=== PATIENT | female | born 1985 | race Hispanic/Latino ===

== ENCOUNTER 2019-10-13 17:56 | Emergency (ER) | payer SELFPAY ==
[2019-10-13 18:05] VITALS: BP 145/91
--- NOTE | 2019-10-13 18:28 | Emergency Department Report ---
Chief Complaint: Dental/Oral Stated Complaint: TOOTH PAIN Time Seen by Provider: 10/13/19 18:24 - HPI History of Present Illness: 33-year-old female presents to the emergency room for 3-week history of tooth pain is located in her upper jaw. Patient reports that she has taken [id number] BC Tylenol Advil without much relief. 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 Patient reports she does not have a dentist. Patient is requesting a work excuse to be off tomorrow. - Exam Vital Signs: Vital Signs 10/13/19 18:04 Temperature 99.6 F Pulse Rate 98 H Respiratory 20 Rate Blood Pressure 145/91 O2 Sat by Pulse 97 Oximetry Physical Exam: Patient is alert and oriented x3 no acute distress Face no swelling appreciated Right tooth #2 shows no gingiva enlargement not able to appreciate a large cavity or fractured tooth. No abscess appreciated Patient is ambulatory without difficulties MSE screening note: Focused history and physical exam performed. Due to findings the following was ordered: 33-year-old female presents to the emergency room for 3-week history of tooth pain is located in her upper jaw. Patient reports that she has taken [id number] BC Tylenol Advil without much relief. 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 Patient reports she does not have a dentist. Patient is requesting a work excuse to be off tomorrow. Recommend to follow-up with a dentist handout has been given to patient. Patient can continue taking ibuprofen and Tylenol for pain management. ED Disposition for MSE Clinical Impression: Pain in tooth Disposition: Z-07 MED SCREENING EXAM-LEFT Is pt being admited?: No Does the pt Need Aspirin: No Condition: Stable Additional Instructions: Take Tylenol ibuprofen or Aleve for pain management. Follow-up with a dentist. Referrals: [facility] [Outside] - 3-5 Days [facility] [Outside] - 3-5 Days [facility] [Outside] - 3-5 Days Forms: Work/School Release Form(ED)
== END 2019-10-13 18:51 | disposition left against medical advice (07) ==
LOC: ED 17:56
DX: K08.89 Other specified disorders of teeth and supporting structures (principal)
CPT/HCPCS: 99281

== ENCOUNTER 2020-02-19 13:08 | Emergency (ER) | payer SELFPAY ==
[2020-02-19] MEDS ORDERED: IBUPROFEN 800 MG TAB PO ONE (13:48)
[2020-02-19] MEDS ORDERED: LIDOCAINE (1%) 10 MG/1 ML VIAL 20 ML MDV INFILTRATI ONE (13:48)
[2020-02-19] MEDS ORDERED: CLINDAMYCIN 300 MG CAP PO ONE (13:48)
[2020-02-19] MEDS ORDERED: oxyCODONE /ACETAMINOPHEN 5-325MG TAB PO ONE (13:48)
[2020-02-19 14:49] VITALS: BP 109/60
--- NOTE | 2020-02-19 14:51 | Emergency Department Report ---
ED General Adult HPI - General Chief complaint: Skin/Abscess/Foreign Body Stated complaint: ABCESS BY PRIVATE AREA Time Seen by Provider: 02/19/20 13:41 Source: patient Mode of arrival: Ambulatory Limitations: No Limitations - History of Present Illness Initial comments: Patient is a 34-year-old female who is presenting with abscesses in the groin region. States that approximately 3 weeks ago she had a small abscess in the right inguinal region. This has nearly resolved. She now has 2 areas that have developed in the area just medial to the thigh crease on the left. States there is no drainage from 1. She has pain is 6 out of 10 in severity is worse when she is walking or palpating. Patient denies any fevers chills nausea vomiting at this time. Severity scale (0 -10): 10 - Related Data Previous Rx's Medication Instructions Recorded Last Taken Type lisinopriL [Zestril TAB] 10 mg PO QDAY #30 tablet 03/27/15 Unknown Rx metFORMIN [Glucophage] 500 mg PO BID #60 tablet 03/27/15 Unknown Rx Chlorhexidine Gluconate [Hibiclens] 5 ml TP BID #1 bottle 02/19/20 Unknown Rx Clindamycin [Clindamycin CAP] 300 mg PO Q8H #21 cap 02/19/20 Unknown Rx Ibuprofen [Motrin 600 MG tab] 600 mg PO Q8H PRN #20 tablet 02/19/20 Unknown Rx Allergies Allergy/AdvReac Type Severity Reaction Status Date / Time No Known Allergies Allergy Verified 03/26/15 14:04 ED Review of Systems ROS: Stated complaint: ABCESS BY PRIVATE AREA Other details as noted in HPI Comment: All other systems reviewed and negative ED Past Medical Hx - Past Medical History Previous Medical History?: Yes Hx Hypertension: Yes Hx Diabetes: Yes Additional medical history: food borne hepatitis - Surgical History Past Surgical History?: No - Social History Smoking Status: Current Every Day Smoker Substance Use Type: None - Medications Home Medications: Home Medications Medication Instructions Recorded Confirmed Last Taken Type lisinopriL [Zestril TAB] 10 mg PO QDAY #30 tablet 03/27/15 02/19/20 Unknown Rx metFORMIN [Glucophage] 500 mg PO BID #60 tablet 03/27/15 02/19/20 Unknown Rx Chlorhexidine Gluconate [Hibiclens] 5 ml TP BID #1 bottle 02/19/20 Unknown Rx Clindamycin [Clindamycin CAP] 300 mg PO Q8H #21 cap 02/19/20 Unknown Rx Ibuprofen [Motrin 600 MG tab] 600 mg PO Q8H PRN #20 tablet 02/19/20 Unknown Rx ED Physical Exam - General Limitations: No Limitations General appearance: alert, in no apparent distress - Head Head exam: Present: atraumatic, normocephalic - Eye Eye exam: Present: normal appearance, PERRL, EOMI - ENT ENT exam: Present: mucous membranes moist - Neck Neck exam: Present: normal inspection - Respiratory Respiratory exam: Present: normal lung sounds bilaterally. Absent: respiratory distress, wheezes, rales, rhonchi, stridor - Cardiovascular Cardiovascular Exam: Present: regular rate, normal rhythm. Absent: systolic murmur, diastolic murmur, rubs, gallop - GI/Abdominal GI/Abdominal exam: Present: soft, normal bowel sounds - Extremities Exam Extremities exam: Present: normal inspection - Back Exam Back exam: Present: normal inspection - Neurological Exam Neurological exam: Present: alert, oriented X3 - Psychiatric Psychiatric exam: Present: normal affect, normal mood - Skin Skin exam: Present: warm, dry, intact, normal color. Absent: rash - Expanded Skin Exam Expanded 1 - several areas of folliculitis 2 - 2 small abscesses in the left inguinal crease. 1 of which is draining. Both are relatively small. ED Course Vital Signs 02/19/20 02/19/20 02/19/20 13:13 13:15 13:33 Temperature 98.7 F 98.7 F Pulse Rate 98 H 102 H Respiratory 18 18 Rate Blood Pressure 152/93 152/93 Blood Pressure [Left] O2 Sat by Pulse 95 95 96 Oximetry 02/19/20 02/19/20 02/19/20 13:34 13:39 13:45 Temperature Pulse Rate 90 Respiratory 20 18 Rate Blood Pressure 130/91 Blood Pressure 134/88 [Left] O2 Sat by Pulse 98 98 Oximetry 02/19/20 14:01 Temperature Pulse Rate Respiratory Rate Blood Pressure 144/61 Blood Pressure [Left] O2 Sat by Pulse 97 Oximetry - I & D Pubic Area Type of Procedure: Simple Site: Left groin Blade Size: 11 I & D Procedure: betadine prep, sterile drapes applied, sterile dressing applied, gauze wick placed (in the larger abscess) Progress: Loculations were broken up in both. Both were irrigated with copious amounts of normal saline. Critical care attestation.: If time is entered above; I have spent that time in minutes in the direct care of this critically ill patient, excluding procedure time. ED Disposition Clinical Impression: Abscess, Folliculitis barbae, Hyperglycemia Disposition: DC-01 TO HOME OR SELFCARE Is pt being admited?: No Does the pt Need Aspirin: No Condition: Stable Instructions: Abscess (ED), Folliculitis (ED) Time of Disposition: 14:54
== END 2020-02-19 15:07 | disposition home or self-care (01) ==
LOC: ED 13:08
DX: L02.214 Cutaneous abscess of groin (principal); L73.8 Other specified follicular disorders; E11.65 Type 2 diabetes mellitus with hyperglycemia; I10 Essential (primary) hypertension; F17.200 Nicotine dependence, unspecified, uncomplicated; Z79.899 Other long term (current) drug therapy
CPT/HCPCS: 82962; 99282

== ENCOUNTER 2021-02-18 23:15 | Emergency (ER) | payer SELFPAY ==
[2021-02-18 23:22] VITALS: BP 164/91
--- NOTE | 2021-02-19 00:25 | Emergency Department Report ---
ED Fall HPI - General Chief Complaint: Fall Stated Complaint: FALL/RIB/KNEE PAIN Time Seen by Provider: 02/18/21 23:48 Source: patient Mode of arrival: Ambulatory - History of Present Illness Initial Comments: 35-year-old female was at home 2 days ago attempting to change a light bulb slipped and water fell down onto her left side hitting it against an object Juan of the ribs at the striking the ribs caused her body to drill and she twisted her right leg and knee resulting in pain and swelling. She attempted to self treat for the last 2 days but the left rib pain became more dull and throbbing and worse with palpation and deep breaths and range of motion. But no hemoptysis no hematemesis no hematochezia. No wheezes no fevers chills or sweats. Regards to the knee she reports that she noticed some mild swelling and pain with with flexion and extension weightbearing. No pre-existing issues with her knee to her knowledge MD Complaint: fall - Related Data Previous Rx's Medication Instructions Recorded Last Taken Type lisinopriL [Zestril TAB] 10 mg PO QDAY #30 tablet 03/27/15 Unknown Rx metFORMIN [Glucophage] 500 mg PO BID #60 tablet 03/27/15 Unknown Rx Chlorhexidine Gluconate [Hibiclens] 5 ml TP BID #1 bottle 02/19/20 Unknown Rx Clindamycin [Clindamycin CAP] 300 mg PO Q8H #21 cap 02/19/20 Unknown Rx Ibuprofen [Motrin 600 MG tab] 600 mg PO Q8H PRN #20 tablet 02/19/20 Unknown Rx Ketorolac [Toradol] 10 mg PO Q6H PRN #14 tablet 02/19/21 Unknown Rx methOCARBAMOL [Robaxin TAB] 750 mg PO Q8H #20 tablet 02/19/21 Unknown Rx Allergies Allergy/AdvReac Type Severity Reaction Status Date / Time No Known Allergies Allergy Verified 03/26/15 14:04 ED Review of Systems ROS: Stated complaint: FALL/RIB/KNEE PAIN Other details as noted in HPI Comment: All other systems reviewed and negative ED Past Medical Hx - Past Medical History Previous Medical History?: Yes Hx Hypertension: Yes Hx Diabetes: Yes Additional medical history: food borne hepatitis - Surgical History Past Surgical History?: No - Social History Smoking Status: Current Every Day Smoker Substance Use Type: None - Medications Home Medications: Home Medications Medication Instructions Recorded Confirmed Last Taken Type lisinopriL [Zestril TAB] 10 mg PO QDAY #30 tablet 03/27/15 02/19/20 Unknown Rx metFORMIN [Glucophage] 500 mg PO BID #60 tablet 03/27/15 02/19/20 Unknown Rx Chlorhexidine Gluconate [Hibiclens] 5 ml TP BID #1 bottle 02/19/20 Unknown Rx Clindamycin [Clindamycin CAP] 300 mg PO Q8H #21 cap 02/19/20 Unknown Rx Ibuprofen [Motrin 600 MG tab] 600 mg PO Q8H PRN #20 tablet 02/19/20 Unknown Rx Ketorolac [Toradol] 10 mg PO Q6H PRN #14 tablet 02/19/21 Unknown Rx methOCARBAMOL [Robaxin TAB] 750 mg PO Q8H #20 tablet 02/19/21 Unknown Rx ED Physical Exam - General Limitations: No Limitations General appearance: alert, in no apparent distress - Head Head exam: Present: atraumatic, normocephalic - Eye Eye exam: Present: normal appearance, PERRL, EOMI Pupils: Present: normal accommodation - ENT ENT exam: Present: mucous membranes moist - Neck Neck exam: Present: normal inspection, full ROM - Respiratory Respiratory exam: Present: normal lung sounds bilaterally, chest wall tenderness (Left side with ecchymosis noted at the area of the left flank/rib region.). Absent: respiratory distress, wheezes, rhonchi, decreased breath sounds, prolonged expiratory - Cardiovascular Cardiovascular Exam: Present: regular rate, normal rhythm. Absent: systolic murmur, diastolic murmur, rubs, gallop - GI/Abdominal GI/Abdominal exam: Present: soft, normal bowel sounds. Absent: guarding, rebound, hypoactive bowel sounds, organomegaly - Extremities Exam Extremities exam: Present: normal inspection, normal capillary refill - Back Exam Back exam: Present: normal inspection. Absent: CVA tenderness (R), CVA tenderness (L) - Neurological Exam Neurological exam: Present: alert, oriented X3, CN II-XII intact - Psychiatric Psychiatric exam: Present: normal affect, normal mood. Absent: flat affect, manic, suicidal ideation - Skin Skin exam: Present: warm, dry, intact, normal color. Absent: rash, diaphoretic, erythema, ecchymosis ED Course Vital Signs 10/01/21 10/01/21 23:19 23:22 Temperature 99.3 F Pulse Rate 93 H Respiratory 12 Rate Blood Pressure 164/91 O2 Sat by Pulse 98 Oximetry ED Medical Decision Making - Radiology Data Radiology results: report reviewed X-ray chest ribs and knees no acute fractures or dislocations knee x-ray does show some tricompartmental mild arthritis and small effusion Critical care attestation.: If time is entered above; I have spent that time in minutes in the direct care of this critically ill patient, excluding procedure time. ED Disposition Clinical Impression: Contusion of rib on left side, Tricompartment osteoarthritis of right knee, Knee strain Disposition: HOME / SELF CARE / HOMELESS Is pt being admited?: No Does the pt Need Aspirin: No Condition: Stable Instructions: Preventing Osteoarthritis, Adult, How to Use Cold Therapy, [id number]-ix-[id number], Elastic Bandage and RICE Therapy, Rib Contusion, How to Use Cold Therapy, How to Use a Knee Brace Additional Instructions: He was seen evaluated emergency department for slip and fall with resulting trauma to the chest and knee. During your emergency department visit no urgent or emergent medical conditions were discovered. Your x-ray showed no acute processes. Please utilize ice therapy anti-inflammatories and and muscle relaxers to treat your contusions and your knee strain. Utilize Vamshi wrap for comfort to you your your name and follow-up with your primary care doctor orthopedic to be reevaluated within 1 week Prescriptions: methOCARBAMOL [Robaxin TAB] 750 mg PO Q8H #20 tablet Ketorolac [Toradol] 10 mg PO Q6H PRN #14 tablet PRN Reason: Pain Referrals: PRIMARY MD KELI [Primary Care Provider] - 3-5 Days DAINA TURPIN MD [Staff Physician] - 7-10 days
--- NOTE | 2021-02-19 01:23 | XRay Report ---
Right knee 3 views INDICATION: Right knee pain IMPRESSION: Small knee effusion. Mild tricompartmental degenerative changes. No fracture or subluxati on. Signer Name: Jose De Jesus El MD Signed: 02/19/2021 1:19 AM Workstation Name: [id number]
--- NOTE | 2021-02-19 01:25 | XRay Report ---
Rib series with chest left 4 views INDICATION: Left chest pain after injury IMPRESSION: The lungs are clear. No displaced rib fracture is identified. Signer Name: Jose De Jesus El MD Signed: 02/19/2021 1:20 AM Workstation Name: [id number]
[2021-02-19] MEDS ORDERED: oxyCODONE /ACETAMINOPHEN 5-325MG TAB PO ONE (03:27)
== END 2021-02-19 04:00 | disposition home or self-care (01) ==
LOC: ED 23:15
DX: S86.811A Strain of other muscle(s) and tendon(s) at lower leg level, right leg, initial encounter (principal); S20.212A Contusion of left front wall of thorax, initial encounter; M17.11 Unilateral primary osteoarthritis, right knee; Z79.899 Other long term (current) drug therapy; W18.39XA Other fall on same level, initial encounter; Y93.89 Activity, other specified; Y92.89 Other specified places as the place of occurrence of the external cause; Y99.8 Other external cause status
CPT/HCPCS: 99283

== ENCOUNTER 2021-05-20 16:15 | Emergency (ER) | payer SELFPAY ==
--- NOTE | 2021-05-20 18:06 | Emergency Department Report ---
ED General Adult HPI - General Chief complaint: Skin/Abscess/Foreign Body Stated complaint: SWOLLEN FACE/EYE Time Seen by Provider: 05/20/21 18:04 Source: patient Mode of arrival: Ambulatory Limitations: No Limitations - History of Present Illness Initial comments: Patient presents with a 3 to 5-day history of pain and swelling in the right facial area. But a month ago she had some dental tenderness on the right side. She did not have swelling at that point. This just started. She has no trauma. There is no fevers or chills with is no cough congestion. There is swelling involving the right cheek area and the swelling extends up to the eye. She states that the swelling might of gotten a little bit better as the day progressed. She states that she really does not have any dental tenderness although she knows that she has extensive caries. There is no cough or congestion. She has had no blurry vision or double vision. Has not been bitten or stung by anything. Patient does admit that she is noncompliant with her blood pressure medication and diabetes medication. She has not been on medications for months, at least. - Related Data Previous Rx's Medication Instructions Recorded Last Taken Type Clindamycin [Clindamycin CAP] 300 mg PO Q8H #21 cap 05/20/21 Unknown Rx Ibuprofen [Motrin 600 MG tab] 600 mg PO Q8H PRN #20 tablet 05/20/21 Unknown Rx lisinopriL [Zestril TAB] 10 mg PO QDAY #30 tablet 05/20/21 Unknown Rx metFORMIN [Glucophage] 500 mg PO BID #60 tablet 05/20/21 Unknown Rx Allergies Allergy/AdvReac Type Severity Reaction Status Date / Time No Known Allergies Allergy Verified 03/26/15 14:04 ED Review of Systems ROS: Stated complaint: SWOLLEN FACE/EYE Other details as noted in HPI Comment: All other systems reviewed and negative Constitutional: denies: fever Eyes: denies: vision change ENT: denies: throat pain Respiratory: denies: cough Cardiovascular: denies: chest pain Gastrointestinal: denies: abdominal pain Genitourinary: denies: dysuria Musculoskeletal: denies: back pain Skin: denies: rash Neurological: denies: headache Hematological/Lymphatic: denies: easy bruising ED Past Medical Hx - Past Medical History Hx Hypertension: Yes Hx Diabetes: Yes Additional medical history: food borne hepatitis - Family History Family history: diabetes, hypertension - Social History Smoking Status: Current Every Day Smoker Substance Use Type: None - Medications Home Medications: Home Medications Medication Instructions Recorded Confirmed Last Taken Type Clindamycin [Clindamycin CAP] 300 mg PO Q8H #21 cap 05/20/21 Unknown Rx Ibuprofen [Motrin 600 MG tab] 600 mg PO Q8H PRN #20 tablet 05/20/21 Unknown Rx lisinopriL [Zestril TAB] 10 mg PO QDAY #30 tablet 05/20/21 Unknown Rx metFORMIN [Glucophage] 500 mg PO BID #60 tablet 05/20/21 Unknown Rx ED Physical Exam - General Limitations: No Limitations, Other (Pulse ox noted and normal) General appearance: alert, in no apparent distress - Head Head exam: Present: atraumatic, other (There is right maxillary edema with induration. There is flattening of the right nasolabial fold. This has some warmth associate with this. There is no fluctuance) - Eye Eye exam: Present: normal appearance, EOMI - ENT ENT exam: Present: other (Dental caries involving the right 1st molar and wisdom tooth. These are on the upper side. Lower dentition appears to be unremarkable.) - Neck Neck exam: Present: normal inspection. Absent: meningismus - Respiratory Respiratory exam: Present: normal lung sounds bilaterally. Absent: respiratory distress - Cardiovascular Cardiovascular Exam: Present: regular rate, normal rhythm - GI/Abdominal GI/Abdominal exam: Present: soft. Absent: tenderness - Extremities Exam Extremities exam: Present: normal capillary refill - Back Exam Back exam: Present: full ROM - Neurological Exam Neurological exam: Present: alert, oriented X3, normal gait - Psychiatric Psychiatric exam: Present: normal affect, normal mood - Skin Skin exam: Present: warm, dry ED Course Vital Signs 05/20/21 18:01 Temperature 98.9 F Pulse Rate 92 H Respiratory 17 Rate Blood Pressure 185/110 O2 Sat by Pulse 96 Oximetry - Reevaluation(s) Reevaluation #1: 05/20/21 18:17 Patient was treated and released. Old records noted. ED Medical Decision Making - Medical Decision Making Patient presented with an apical alveolar abscess consistent with a dental infection. There was no discrete abscess that would be drainable. She has diffuse dental caries and this can be treated. She was referred to a dentist. She does have diabetes and hypertension and is noncompliant with medication. These medications have been refilled. We did discuss tobacco cessation as she smokes a half a pack a day. She does not appear to be septic or toxic at this time. There is no airway compromise. There is no evidence of Claude angina. Critical Care Time: No Critical care attestation.: If time is entered above; I have spent that time in minutes in the direct care of this critically ill patient, excluding procedure time. ED Disposition Clinical Impression: Apical alveolar abscess, Cellulitis of buccal space of mouth, Tobacco abuse, Medication refill Disposition: HOME / SELF CARE / HOMELESS Is pt being admited?: No Condition: Stable Instructions: Dental Abscess, Preventing Exposure to Secondhand Smoke, Adult, Preventive Dental Care, Adult, Steps to Quit Smoking Additional Instructions: Have a soft diet. See a dentist. Take all of the antibiotics. Take your blood pressure and diabetes medication. Stop smoking. Prescriptions: Clindamycin [Clindamycin CAP] 300 mg PO Q8H #21 cap metFORMIN [Glucophage] 500 mg PO BID #60 tablet Ibuprofen [Motrin 600 MG tab] 600 mg PO Q8H PRN #20 tablet PRN Reason: Pain lisinopriL [Zestril TAB] 10 mg PO QDAY #30 tablet Referrals: ADVON MASON MD [Staff Physician] - 3-5 Days
[2021-05-20 19:12] VITALS: BP 161/99
== END 2021-05-20 18:50 | disposition home or self-care (01) ==
LOC: ED 16:15
DX: K04.6 Periapical abscess with sinus (principal); K12.2 Cellulitis and abscess of mouth; Z76.0 Encounter for issue of repeat prescription; I10 Essential (primary) hypertension; E11.9 Type 2 diabetes mellitus without complications; F17.200 Nicotine dependence, unspecified, uncomplicated
CPT/HCPCS: 99282

== ENCOUNTER 2022-01-26 12:46 | Emergency (ER) | payer SELFPAY ==
[2022-01-26 12:51] VITALS: BP 178/115
[2022-01-26] MEDS ORDERED: diphenhydrAMINE 25 MG CAP PO ONE (13:56)
[2022-01-26] MEDS ORDERED: BUTALB/ACETAMINOPHEN/CAFFEINE TAB PO ONE (13:56)
[2022-01-26] MEDS ORDERED: METOCLOPRAMIDE 10 MG TAB PO ONE (13:57)
--- NOTE | 2022-01-26 14:29 | Emergency Department Report ---
ED General Adult HPI - General Chief complaint: Headache Stated complaint: HEADACHE Time Seen by Provider: 01/26/22 13:46 Source: patient, EMS Mode of arrival: Ambulatory Limitations: No Limitations - History of Present Illness Initial comments: The patient presents to the emergency department the chief complaint of a headache that has been present since Sunday. Patient states she has pressure over her right eye states this is very consistent with sinus infection she has had in the past. She describes the pain as throbbing in nature and states is also located on the left side of her forehead as well. Patient states she has been seen for sinus infections twice in the emergency department within the last year or 2. Patient denies any chest pain, shortness breath, or abdominal pain. -: Sudden Location: head Radiation: non-radiation Severity scale (0 -10): 10 Consistency: constant Improves with: none Worsens with: none Associated Symptoms: denies other symptoms Treatments Prior to Arrival: none - Related Data Previous Rx's Medication Instructions Recorded Last Taken Type Clindamycin [Clindamycin CAP] 300 mg PO Q8H #21 cap 05/20/21 Unknown Rx Ibuprofen [Motrin 600 MG tab] 600 mg PO Q8H PRN #20 tablet 05/20/21 Unknown Rx lisinopriL [Zestril TAB] 10 mg PO QDAY #30 tablet 05/20/21 Unknown Rx metFORMIN [Glucophage] 500 mg PO BID #60 tablet 05/20/21 Unknown Rx Amoxicillin/K Clav Tab [Augmentin 1 tab PO Q12HR #14 tab 01/26/22 Unknown Rx 875 mg] traMADoL [Ultram] 50 mg PO Q6HR PRN #24 tablet 01/26/22 Unknown Rx Allergies Allergy/AdvReac Type Severity Reaction Status Date / Time No Known Allergies Allergy Verified 01/26/22 12:51 ED Review of Systems ROS: Stated complaint: HEADACHE Other details as noted in HPI Comment: All other systems reviewed and negative Constitutional: denies: chills, fever Eyes: denies: eye pain, eye discharge, vision change ENT: denies: ear pain, throat pain Respiratory: denies: cough, shortness of breath, wheezing Cardiovascular: denies: chest pain, palpitations Endocrine: no symptoms reported Gastrointestinal: denies: abdominal pain, nausea, diarrhea Genitourinary: denies: urgency, dysuria, discharge Musculoskeletal: denies: back pain, joint swelling, arthralgia Skin: denies: rash, lesions Neurological: headache. denies: weakness, paresthesias Psychiatric: denies: anxiety, depression Hematological/Lymphatic: denies: easy bleeding, easy bruising ED Past Medical Hx - Past Medical History Hx Hypertension: Yes Hx Diabetes: Yes Additional medical history: food borne hepatitis - Social History Smoking Status: Current Every Day Smoker Substance Use Type: None - Medications Home Medications: Home Medications Medication Instructions Recorded Confirmed Last Taken Type Clindamycin [Clindamycin CAP] 300 mg PO Q8H #21 cap 05/20/21 Unknown Rx Ibuprofen [Motrin 600 MG tab] 600 mg PO Q8H PRN #20 tablet 05/20/21 Unknown Rx lisinopriL [Zestril TAB] 10 mg PO QDAY #30 tablet 05/20/21 Unknown Rx metFORMIN [Glucophage] 500 mg PO BID #60 tablet 05/20/21 Unknown Rx Amoxicillin/K Clav Tab [Augmentin 1 tab PO Q12HR #14 tab 01/26/22 Unknown Rx 875 mg] traMADoL [Ultram] 50 mg PO Q6HR PRN #24 tablet 01/26/22 Unknown Rx ED Physical Exam - General Limitations: No Limitations General appearance: alert, in no apparent distress - Head Head exam: Present: atraumatic, normocephalic, other (Patient has tenderness palpation of the frontal and maxillary sinuses on exam) - Eye Eye exam: Present: normal appearance, PERRL, EOMI - ENT ENT exam: Present: mucous membranes moist - Neck Neck exam: Present: normal inspection - Respiratory Respiratory exam: Present: normal lung sounds bilaterally. Absent: respiratory distress - Cardiovascular Cardiovascular Exam: Present: regular rate, normal rhythm. Absent: systolic murmur, diastolic murmur, rubs, gallop - Extremities Exam Extremities exam: Present: normal inspection - Back Exam Back exam: Present: normal inspection - Neurological Exam Neurological exam: Present: alert, oriented X3, CN II-XII intact, other (Finger- nose, [id number], rapid hand movement all intact). Absent: motor sensory deficit - Psychiatric Psychiatric exam: Present: normal affect, normal mood - Skin Skin exam: Present: warm, dry, intact, normal color. Absent: rash ED Course Vital Signs 01/26/22 12:46 Temperature 98.1 F Pulse Rate 83 Respiratory 18 Rate Blood Pressure 178/115 [Left] O2 Sat by Pulse 95 Oximetry ED Medical Decision Making - Medical Decision Making Patient had relief of her headache with medications given in the ED Critical care attestation.: If time is entered above; I have spent that time in minutes in the direct care of this critically ill patient, excluding procedure time. ED Disposition Clinical Impression: Sinus headache, Sinusitis Disposition: 01 HOME / SELF CARE / HOMELESS Is pt being admited?: No Does the pt Need Aspirin: No Condition: Stable Instructions: Sinusitis, Adult, Sinus Headache Additional Instructions: Return if worse Prescriptions: Amoxicillin/K Clav Tab [Augmentin 875 mg] 1 tab PO Q12HR #14 tab traMADoL [Ultram] 50 mg PO Q6HR PRN #24 tablet PRN Reason: Pain Referrals: ADIA HICKEY MD [Staff Physician] - 3-5 Days Time of Disposition: 16:01
[2022-01-26] MEDS ORDERED: HYDROcodone/ACETAMINOPHEN 5-325 MG TAB PO ONE (15:58)
[2022-01-26] MEDS ORDERED: ONDANSETRON 4 MG ODT TAB PO ONE (15:58)
== END 2022-01-26 16:08 | disposition home or self-care (01) ==
LOC: ED 12:46
DX: J32.9 Chronic sinusitis, unspecified (principal); R51.9 Headache, unspecified; I10 Essential (primary) hypertension; E11.9 Type 2 diabetes mellitus without complications; F17.200 Nicotine dependence, unspecified, uncomplicated
CPT/HCPCS: 99283; J3490; Q0162